=== PATIENT | female | born 2000 ===

== ENCOUNTER 2020-12-22 11:35 | Outpatient (CLI) | payer OTHER ==
[2020-12-22] MEDS ORDERED: ACETAMINOPHEN 500 MG TAB PO SCH (13:00)
[2020-12-22] MEDS ORDERED: ALUM-MAG HYDROXIDE-SIMETHICONE 200-200-20MG/5ML ORAL LIQD 30 ML PO PRN (13:00)
[2020-12-22] MEDS ORDERED: LACTATED RINGERS 1,000 ML IV ONE (13:17)
[2020-12-22 13:38] LABS: Bacteria,Urine 1+ /HPF (Negative); Bilirubin,Urine NEG (Negative); Blood,Urine NEG (Negative); Color,Urine Straw (Yellow); Protein,Urine <15 mg/dL mg/dL (Negative); Urobilinogen,Urine < 2.0 mg/dL (<2.0)
[2020-12-22 14:09] VITALS: BP 110/60
== END 2020-12-22 17:50 | disposition home or self-care (01) ==
LOC: LAB 11:35 → APU 12:03 → LAB 17:30
PROVIDERS: ATTEND Obstetrics & Gynecology
DX: Z34.93 Encounter for supervision of normal pregnancy, unspecified, third trimester (principal); Z3A.28 28 weeks gestation of pregnancy
CPT/HCPCS: 59025; 81001; 86850; 86900; 86901; J2790

== ENCOUNTER 2021-01-02 11:24 | Outpatient (CLI) | payer OTHER ==
[2021-01-02 12:47] LABS: Bilirubin,Urine NEG (Negative); Blood,Urine NEG (Negative); Color,Urine Straw (Yellow); Protein,Urine <15 mg/dL mg/dL (Negative); Urobilinogen,Urine < 2.0 mg/dL (<2.0)
--- NOTE | 2021-01-02 13:34 | Ultrasound Report ---
ULTRASOUND OBSTETRIC LIMITED INDICATION / CLINICAL INFORMATION: Evaluate well being. COMPARISON: None available. FINDINGS: AMNIOTIC FLUID INDEX (cm) = 9.6 PRESENTATION: Cephalic. HEART RATE (beats per minute): 159 ADDITIONAL FINDINGS: The placenta is located anteriorly and appears unremarkable. IMPRESSION: Live intrauterine as above by limited sonography. No acute findings. Signer Name: Harley Valles MD Signed: 01/02/2021 1:30 PM Workstation Name: [id number]
[2021-01-02 13:39] VITALS: BP 119/68
[2021-01-02] MEDS ORDERED: ACETAMINOPHEN 500 MG TAB PO ONE (14:00)
[2021-01-02] MEDS ORDERED: LACTATED RINGERS 1,000 ML IV SCH (14:00)
[2021-01-02] MEDS ORDERED: D5W/LACTATED RINGERS 1,000 ML IV SCH (14:00)
== END 2021-01-02 15:25 | disposition home or self-care (01) ==
LOC: APU 11:29 → TRG 15:25
PROVIDERS: ATTEND Obstetrics & Gynecology
DX: O26.893 Other specified pregnancy related conditions, third trimester (principal); R51.9 Headache, unspecified; M79.89 Other specified soft tissue disorders; M54.9 Dorsalgia, unspecified; R10.9 Unspecified abdominal pain; Z3A.29 29 weeks gestation of pregnancy
CPT/HCPCS: 59025; 76815; 81001; 96361; 96365; J0690; J7121; 96360

== ENCOUNTER 2021-02-17 12:36 | Outpatient (CLI) | payer OTHER ==
[2021-02-17] MEDS ORDERED: LACTATED RINGERS 1,000 ML IV ONE (14:00)
[2021-02-17 14:06] LABS: Alanine Aminotransferase 10 units/L (7-56); Uric Acid 2.9 mg/dL (3.5-7.6)
[2021-02-17 14:25] LABS: Hemoglobin 10.1 gm/dl (10.1-14.3); Mean Corpuscular HGB Conc 32 % (30-34); Mean Corpuscular Volume 88 fl (79-97); Platelet Count 343 K/mm3 (140-440); Red Blood Count 3.66 M/mm3 (3.65-5.03)
[2021-02-17 14:35] LABS: Bilirubin,Urine NEG (Negative); Blood,Urine NEG (Negative); Color,Urine Straw (Yellow); Protein,Urine <15 mg/dL mg/dL (Negative); Urobilinogen,Urine < 2.0 mg/dL (<2.0)
[2021-02-17 14:58] VITALS: BP 113/56
[2021-02-17] MEDS ORDERED: ACETAMINOPHEN 500 MG TAB ONE (14:58)
== END 2021-02-17 16:53 | disposition home or self-care (01) ==
LOC: TRG 12:36 → APU 12:37 → TRG 16:53
PROVIDERS: ATTEND Obstetrics & Gynecology
DX: O13.3 Gestational [pregnancy-induced] hypertension without significant proteinuria, third trimester (principal); Z3A.36 36 weeks gestation of pregnancy
CPT/HCPCS: 36415; 59025; 81001; 82565; 83615; 84450; 84460; 84550; 85027

== ENCOUNTER 2021-02-25 22:19 | Outpatient (CLI) | payer OTHER ==
[2021-02-25] MEDS ORDERED: LACTATED RINGERS 1,000 ML IV ONE (23:02)
[2021-02-25] MEDS ORDERED: PROMETHAZINE 25 MG RECT SUPP PR ONE (23:17)
[2021-02-25] MEDS ORDERED: MORPHINE 2 MG/1 ML INJ IM ONE (23:17)
[2021-02-25 23:20] VITALS: BP 112/69
[2021-02-25 23:20] LABS: Bilirubin,Urine NEG (Negative); Blood,Urine NEG (Negative); Color,Urine Straw (Yellow); Protein,Urine <15 mg/dL mg/dL (Negative); Urobilinogen,Urine < 2.0 mg/dL (<2.0)
== END 2021-02-25 23:45 | disposition home or self-care (01) ==
LOC: TRG 22:19 → APU 22:21 → TRG 23:45
PROVIDERS: ATTEND Obstetrics & Gynecology
DX: O26.893 Other specified pregnancy related conditions, third trimester (principal); R51.0 Headache with orthostatic component, not elsewhere classified; R42 Dizziness and giddiness; H53.8 Other visual disturbances; Z3A.37 37 weeks gestation of pregnancy
CPT/HCPCS: 59025; 81001; 96372; J2270

== ENCOUNTER 2021-03-06 20:37 | Outpatient (CLI) | payer OTHER ==
[2021-03-06 21:18] VITALS: BP 124/70
[2021-03-06] MEDS: LACTATED RINGERS 1000 ML IV SOLN IV SCH (23:45)
--- NOTE | 2021-03-07 00:11 | Ultrasound Report ---
ULTRASOUND OBSTETRIC LIMITED ULTRASOUND BIOPHYSICAL PROFILE INDICATION / CLINICAL INFORMATION: Evaluate well-being. COMPARISON: OB ultrasound from 01/02/2021. FINDINGS: BREATHING MOVEMENT = 2 GROSS BODY MOVEMENT = 2 TONE = 2 QUALITATIVE AMNIOTIC FLUID VOLUME = 2 TOTAL BIOPHYSICAL SCORE = 8/8 AMNIOTIC FLUID INDEX (cm) = 9.3 PRESENTATION: Cephalic. HEART RATE (beats per minute): 137 ADDITIONAL FINDINGS: Estimated age by measurements is 38 weeks, 4 days. Estimated weight is 3258 g with a growth percentile of 39. IMPRESSION: 1. Biophysical Score = 8/8 2. Estimated gestational age of 38 weeks, 4 days. 3. Normal amniotic fluid index of 9.3 cm. Signer Name: Harley Valles MD Signed: 03/07/2021 12:06 AM Workstation Name: [id number]
[2021-03-07] MEDS: LACTATED RINGERS 1000 ML IV SOLN IV SCH (00:51)
== END 2021-03-07 02:19 | disposition home or self-care (01) ==
LOC: TRG 20:37 → APU 20:43 → TRG 03-07 02:19
PROVIDERS: ATTEND Obstetrics & Gynecology Gynecology
DX: O26.893 Other specified pregnancy related conditions, third trimester (principal); W22.8XXA Striking against or struck by other objects, initial encounter; Z3A.38 38 weeks gestation of pregnancy; Y93.89 Activity, other specified; Y92.89 Other specified places as the place of occurrence of the external cause; Y99.8 Other external cause status
CPT/HCPCS: 59025; 76816; 76819; 96360; J7120

== ENCOUNTER 2021-03-14 11:57 | Outpatient (CLI) | payer OTHER ==
[2021-03-14 12:30] VITALS: BP 123/70
--- NOTE | 2021-03-14 15:04 | Ultrasound Report ---
ULTRASOUND OBSTETRIC LIMITED ULTRASOUND BIOPHYSICAL PROFILE INDICATION / CLINICAL INFORMATION: WELL BEING. Clinical Gestational Age (GA) in weeks, days: TECHNIQUE: Transabdominal. COMPARISON: None available. FINDINGS: BREATHING MOVEMENT = 2 GROSS BODY MOVEMENT = 2 TONE = 2 QUALITATIVE AMNIOTIC FLUID VOLUME = 2 TOTAL BIOPHYSICAL SCORE = 8/8 HEART RATE (beats per minute): 154 AMNIOTIC FLUID INDEX (cm) = 10 (normal = 7-24 cm). The largest pocket is quadrant 2 measuring 4 cm . PRESENTATION: Cephalic. ADDITIONAL FINDINGS: None. IMPRESSION: 1. Biophysical Score = 8/8 . 2. Amniotic fluid index is 10.0 cm. Signer Name: Aidan Unger MD Signed: 03/14/2021 3:01 PM Workstation Name: [id number]
[2021-03-14] MEDS ORDERED: LACTATED RINGERS 1,000 ML ONE (16:53)
[2021-03-14] MEDS ORDERED: ONDANSETRON 4 MG/2 ML INJ ONE (16:53)
[2021-03-14] MEDS ORDERED: BUPIVACAINE/PF (0.5%) 5 MG/1 ML 30 ML VIAL INFILTRATI ONE ×2 (18:00)
[2021-03-14] MEDS ORDERED: dexAMETHasone 20 MG/5 ML VIAL ONE (18:00)
[2021-03-14] MEDS ORDERED: KETOROLAC 30 MG/1 ML INJ ONE (18:26)
== END 2021-03-14 13:50 | disposition home or self-care (01) ==
LOC: TRG 11:57 → APU 11:59 → LD 12:23 → TRG 13:50
PROVIDERS: ATTEND Obstetrics & Gynecology
DX: Z34.93 Encounter for supervision of normal pregnancy, unspecified, third trimester (principal); Z3A.40 40 weeks gestation of pregnancy
CPT/HCPCS: 76815; 76819; J1100; J1885; J2405; J3490; J7120; J7121